=== PATIENT | female | born 2000 | race Caucasian/White ===

== ENCOUNTER 2022-10-04 03:12 | Emergency (ER) | payer BC, SELFPAY ==
--- NOTE | ~2022-10-04 | CT_ITS ---
EXAMINATION: CT abdomen pelvis w con DATE: 10/04/2022 04:55 INDICATION: Left flank pain. TECHNIQUE: Computed tomography (CT) of the abdomen and pelvis was performed with 100 mL Omnipaque 350 intravenous contrast. Automated exposure control and iterative reconstruction technique were employe d. The dose-length product was 270.48 mGy-cm. COMPARISON: None. FINDINGS: The visualized portions of the lung bases are clear without pneumonia or pleural effusion. The heart size is normal. No pericardial effusion. The liver, gallbladder, spleen, pancreas, adrenal glands, and right kidney are normal. There is a left internal ureteral stent in expected position. Th ere is a percutaneous left nephrostomy tube in expected position. There are multiple stones in left k idney including a staghorn calculus measuring 3.9 cm on transaxial images. The nephrostomy tube passe s through a lower pole calyx. There is hydronephrosis of the upper pole with a delayed contrast nephr ogram involving the upper pole. There are cysts in left kidney measuring up to 8 mm. There is cortica l thinning of left kidney lower pole with areas of hypoenhancement in the lower pole. There is mild l eft para-aortic lymphadenopathy. There are no dilated loops of bowel. The appendix is normal. There i s no free intraperitoneal fluid. The bones are unremarkable. IMPRESSION: 1. Staghorn calculus in left kidney with upper pole hydronephrosis. A percutaneous nephrostomy tube d ecompresses the lower pole. Left internal ureteral stent in expected position. 2. Mild left para-aortic lymphadenopathy, likely reactive. Reviewed, dictated and finalized at location A. N ATTENDANT IMPRESSION: 1. Staghorn calculus in left kidney with upper pole hydronephrosis. A percutane ous nephrostomy tube decompresses the lower pole. Left internal ureteral stent in expected position. 2. Mild left para-aortic lymphadenopathy, likely reactive.
[2022-10-04 03:16] VITALS: BP 132/100; PULSE 120; RESP 18; TEMP 36.8; O2SAT 99
--- NOTE | 2022-10-04 03:27 | ECG_ITS ---
Measurements Intervals Tensed Rate: 74 P: 39 OK: 180 QRS: 56 QRSD: 99 T: 29 QT: 388 QTc: 431 Interpretive Statements SINUS RHYTHM NO PREVIOUS ECG AVAILABLE FOR COMPARISON Electronically Signed On 10-04-2022 13:18:55 NET WEB DEVELOPER by Huy Shearer M.D.
[2022-10-04] MEDS: HYDROmorphone HCL INJ (*CRX) 1 MG/ML SYR 0.5 MG IV PUSH (03:43)
[2022-10-04] MEDS: ONDANSETRON INJ 4 MG/2 ML VIAL 8 MG IV PUSH (03:44)
[2022-10-04 03:49] LABS: Basophils Percent Auto 0.3 % (0.2-1.2); Eosinophils Absolute Auto 0.3 K/mm3 (0-0.3); Eosinophils Percent Auto 4.2 % (0-4.4); Hematocrit 36.6 % (37.0-47.0); Hemoglobin 12.3 g/dL (12.0-15.0); Immature Granulocyte Absolute 0.01 K/mm3 (0.00-0.031); Immature Granulocyte Percent A 0.2 % (0-0.5); Lymphocytes Absolute Auto 2.98 K/mm3 (0.9-3.2); Lymphocytes Percent Auto 49.6 % (18.3-44.2); Mean Corpuscular HGB Conc 33.6 g/dl (32-36); Mean Corpuscular Hemoglobin 30.8 pg (26-34); Mean Corpuscular Volume 91.7 fl (80-100); Mean Platelet Volume 9.6 fl (7.4-10.4); Monocytes Absolute Auto 0.4 K/mm3 (0.1-0.6); Monocytes Percent Auto 6.8 % (2.6-8.5); Neutrophils Absolute Auto 2.3 K/mm3 (1.3-6.7); Neutrophils Percent Auto 38.9 % (45.5-73.1); Platelet Count Result 360 k/mm3 (150-375); Red Blood Count 3.99 M/mm3 (4.2-5.4); Red Cell Distribution Width 12.2 % (11.5-14.5)
[2022-10-04 04:01] LABS: Alanine Aminotransferase 9 U/L (6-35); Albumin Level 3.9 g/dL (3.5-5.1); Alkaline Phosphatase 55 U/L (38-126); Anion Gap 9 mmol/L (8-16); Aspartate Amino Transferase 18 U/L (14-36); Bilirubin,Total < 0.1 mg/dL (0.2-1.3); Blood Urea Nitrogen 7 mg/dL (7-17); Carbon Dioxide 27 mmol/L (22-30); Chloride 104 mmol/L (98-107); Estimated CRCL calculation 73 ml/min; Estimated Glomerular Filt Rate > 60; Glucose 97 mg/dL (65-110); Lipase 105 U/L (23-300); Magnesium 1.8 mg/dL (1.6-2.3); Phosphorus 4.5 mg/dL (2.5-4.5); Potassium 3.3 mmol/L (3.4-5.0); Sodium 140 mmol/L (137-145)
[2022-10-04 04:02] LABS: Lactic Acid Reflex 1.4 mmol/L (0.7-2.0)
[2022-10-04 04:03] LABS: Prothrombin Time 12.8 Seconds (11.1-14.7)
--- NOTE | 2022-10-04 04:03 | ED.GENADULT ---
HPI - General Adult General Chief complaint: Urogenital-Female Stated complaint: Pain with Kideny Stone and Tube Site Time Seen by Provider: 10/04/22 03:27 History of Present Illness HPI narrative: this is a 22-year-old female with a history of a 4 cm kidney stone and urostomy on the lap presenting to ED with left-sided flank pain. Patient had the urostomy tube placed on September 01. Since then she has been doing well until approximately 1 week ago. That time she was seen in the hospital and treated for a kidney infection with Levaquin. She is doing well for several days until earlier today around 6:00 p.m. when she did developed dull left-sided flank pain that radiates into her right lower quadrant. It is 5/10 intensity and getting worse. She has never experienced pain like this before. It is slightly positional. She has had an episode of nausea and vomiting but denies fever, abdominal pain or diarrhea. She denies urinary symptoms. The patient's urostomy is still draining urine. Patient has been receiving care for kidney stone at [facility] and in [place] under Dr. Tyler. She is scheduled for surgery next week. Related Data Allergies Allergy/AdvReac Type Severity Reaction Status Date / Time Sulfa (Sulfonamide AdvReac Rash Verified 10/04/22 03:20 Antibiotics) Review of Systems Review of Systems: CONSTITUTIONAL: Denies night sweats. EYES: No eye pain ENT: Denies rhinorrhea CARDIOVASCULAR: Denies palpitations RESPIRATORY: Denies hemoptysis GASTROINTESTINAL: Denies hematemesis GENITOURINARY: Denies hematuria. SKIN: Denies rash MUSCULOSKELETAL: Denies myalgia. NEUROLOGIC: Denies weakness. PSYCHIATRIC: Denies delusions PMFSH Past Medical History Medical History Kidney stone Nephrostomy complication Ureteral stent present Surgical History Surgical History (Updated 10/04/22 @ 04:06 by Tato Castrejon MD) H/O nephrostomy Social History Social History Social History: Patient drinks alcohol occasionally, denies tobacco or drug use. Exam Narrative: APPEARANCE: No apparent distress. Patient's blood during the interview Head: atraumatic. EYES: EOMI, NOSE: Atraumatic NECK: Trachea midline RESPIRATORY: No increased rate of breathing CARDIOVASCULAR: RRR, ABDOMINAL: left-sided CVA tenderness, mild tenderness to palpation in the left lower quadrant. No guarding or rebound. Nephrostomy tube is in place with no surrounding skin changes to indicate infection. MUSCULOSKELETAl: No obvious deformities NEURO: Alert. Moving 4/4 extremities SKIN:: Warm, dry. Normal color PSYCHIATRIC: Normal affect Course Vital Signs Vital signs: Vital Signs Temperature 98.2 F 10/04/22 03:16 Pulse Rate 120 H 10/04/22 03:16 Respiratory Rate 18 10/04/22 03:16 Blood Pressure 132/100 H 10/04/22 03:16 Pulse Oximetry 99 10/04/22 03:16 Oxygen Delivery Room Air 10/04/22 03:16 Temperature 98.2 F 10/04/22 03:16 Pulse Rate 120 H 10/04/22 03:16 Respiratory Rate 18 10/04/22 03:16 Blood Pressure 132/100 H 10/04/22 03:16 Pulse Oximetry 99 10/04/22 03:16 Oxygen Delivery Room Air 10/04/22 03:16 Medical Decision Making [facility] Narrative Medical decision making narrative: This is a 22-year-old female with a urostomy tube running presenting with flank pain. Differentials includes catheter dislodgement or kinking, urinary tract infection, musculoskeletal pain. Lab work, urinalysis from the nephrostomy tube, CT abdomen pelvis with contrast have been ordered. Patient has been given Dilaudid and Zofran for symptom control. patient has been given 2 L of fluid. the patient's nephrostomy tube is still draining so dislodgement or kinking are unlikely. The tube has been in for over 1 month and complications such as hematoma are less likely. EKG interpretation: Rhy
[2022-10-04 04:04] LABS: Partial Thromboplastin Time 32.8 SECONDS (22.3-36.8)
[2022-10-04] MEDS: SODIUM CHLORIDE 0.9% IV 2,000 ML 999 ML IV CONT (04:27)
[2022-10-04 04:30] LABS: Add Urine Microscopic? YES; Bilirubin Urine Negative (Negative); Blood Urine 3+ (Negative); Color Urine Red (Yellow); Glucose Urine UA Negative (Negative); Ketones Urine Trace mg/dL (Negative); Leukocyte Esterase Ur 2+ LEU/UL (Negative); Nitrate Urine Positive (Negative); Protein Urine 2+ mg/dL (Negative); Specific Grav Ur <= 1.005 (1.001-1.035)
[2022-10-04 04:32] LABS: Appearance Urine Cloudy (Clear)
[2022-10-04 04:43] LABS: RBC Urine >75 /hpf (0-2); WBC Clumps Urine Present /HPF; WBC Urine >75 /hpf
[2022-10-04 06:35] VITALS: BP 125/84; PULSE 53; RESP 18; O2SAT 100
[2022-10-04 06:48] VITALS: BP 125/87; PULSE 73; RESP 18; O2SAT 97
== END 2022-10-04 07:01 | disposition home or self-care (01) ==
PROVIDERS: Emergency Provider Emergency Medicine
DX: N13.6 Pyonephrosis (principal); Z93.6 Other artificial openings of urinary tract status; Z96.0 Presence of urogenital implants
CPT/HCPCS: 36415; 74177; 80053; 81001; 81025; 83605; 83690; 83735; 84100; 85025; 85610; 85730; 87086; 87088; 93005; 96361; 96365; 96375; 99284; J0131; J0696; J1170; J2405; J7030; Q9967

== ENCOUNTER 2022-12-19 15:34 | Emergency (ER) | payer BC, SELFPAY ==
[2022-12-19] VITALS (12 sets, daily range): BP systolic 98–136; BP diastolic 48–78; PULSE 71–114; RESP 9–22; TEMP 36.7; O2SAT 96–100
--- NOTE | ~2022-12-19 | CT_ITS ---
EXAMINATION: CT abdomen pelvis wo con DATE: 12/19/2022 20:43 INDICATION: L flank pain, infected UA, hx of large stones TECHNIQUE: Computed tomography (CT) of the abdomen and pelvis was performed without intravenous contr ast. Automated exposure control and iterative reconstruction technique were employed. The dose-length product was 181.19 mGy-cm. COMPARISON: 10/04/2022. FINDINGS: Lower thorax: Unremarkable Liver: Normal. Biliary/Gallbladder: Gallbladder is normal. No bile duct dilation. Pancreas: No mass or duct dilation. Spleen: Normal. Adrenals:No mass. Kidneys: Hemorrhagic or proteinaceous left lower pole cyst. Punctate mid and upper left pole hypodens ities that may represent tiny nonobstructing calculi. No obstructing calcification, suspicious mass, or hydronephrosis. GI tract: No small or large bowel dilation. Normal appendix. Mesentery/Peritoneum: No ascites, mass, or free air. Retroperitoneum: No mass. Prominent left para-aortic nodes, not pathologic by size criteria and small er than in the prior study. Pelvis: Bladder wall thickening and inflammatory change. Normal uterus and bilateral ovaries. Soft Tissues: Soft tissues and body wall unremarkable. Bones: No acute osseous finding. IMPRESSION: Interval removal of the left staghorn calculus. No CT evidence of obstructive uropathy. Bladder findi ngs may represent cystitis in the appropriate clinical context. Reviewed, dictated and finalized at location K. START TEACHER IMPRESSION: Interval removal of the left staghorn calculus. No CT evidence of obstructive u ropathy. Bladder findings may represent cystitis in the appropriate clinical co ntext.
[2022-12-19 16:59] LABS: Basophils Percent Auto 0.3 % (0.2-1.2); Eosinophils Absolute Auto 0.1 K/mm3 (0-0.3); Eosinophils Percent Auto 0.8 % (0-4.4); Hematocrit 45.3 % (37.0-47.0); Hemoglobin 14.9 g/dL (12.0-15.0); Immature Granulocyte Absolute 0.02 K/mm3 (0.00-0.031); Immature Granulocyte Percent A 0.2 % (0-0.5); Lymphocytes Absolute Auto 1.34 K/mm3 (0.9-3.2); Mean Corpuscular HGB Conc 32.9 g/dl (32-36); Mean Corpuscular Volume 97.4 fl (80-100); Mean Platelet Volume 9.7 fl (7.4-10.4); Monocytes Absolute Auto 0.9 K/mm3 (0.1-0.6); Monocytes Percent Auto 8.9 % (2.6-8.5); Neutrophils Absolute Auto 7.9 K/mm3 (1.3-6.7); Neutrophils Percent Auto 76.8 % (45.5-73.1); Platelet Count Result 323 k/mm3 (150-375); Red Blood Count 4.65 M/mm3 (4.2-5.4); Red Cell Distribution Width 13.6 % (11.5-14.5); White Blood Count 10.3 K/mm3 (4.5-10.0)
[2022-12-19 17:09] LABS: Alanine Aminotransferase 13 U/L (6-35); Albumin Level 4.3 g/dL (3.5-5.1); Alkaline Phosphatase 74 U/L (38-126); Anion Gap 4 mmol/L (8-16); Aspartate Amino Transferase 19 U/L (14-36); Bilirubin,Total 0.9 mg/dL (0.2-1.3); Blood Urea Nitrogen 17 mg/dL (7-17); Carbon Dioxide 29 mmol/L (22-30); Chloride 103 mmol/L (98-107); Estimated CRCL calculation 73 ml/min; Estimated Glomerular Filt Rate > 60; Glucose 85 mg/dL (65-110); Potassium 4.2 mmol/L (3.4-5.0); Sodium 136 mmol/L (137-145)
[2022-12-19 17:19] LABS: Appearance Urine Turbid (Clear); Bilirubin Urine 1+ (Negative); Blood Urine 1+ (Negative); Color Urine Dark Yellow (Yellow); Glucose Urine UA Negative (Negative); Ketones Urine 3+ mg/dL (Negative); Leukocyte Esterase Ur 2+ LEU/UL (Negative); Need Manual Microscopic Reviewed; Nitrate Urine Positive (Negative); Non Pathogenic Casts 0-2; Protein Urine 2+ mg/dL (Negative); Specific Grav Ur 1.022 (1.001-1.035); Squamous Epithelial Cell Urine Few /hpf (Few); WBC Urine >100 /hpf; pH Urine 5.5 (5.0-9.0)
[2022-12-19 17:22] LABS: Bacteria Urine 4+ /hpf
[2022-12-19 17:26] LABS: Add Urine Microscopic? YES
--- NOTE | 2022-12-19 20:01 | ED.ABDPAIN ---
HPI - Abdominal Pain General Chief Complaint: Abdominal Pain Stated Complaint: kidney stones/hematuria/vomiting Time Seen by Provider: 12/19/22 19:51 History of Present Illness HPI narrative: Patient is a 22-year-old female with a history of kidney stones presenting with flank pain. Patient states that she was diagnosed with a 4 cm left kidney stone several months ago that required lithotripsy and a nephrostomy tube. This was done by a urologist in [facility] which is her hometown. She is in this area for school. States that she is actually scheduled to have another stone removed from her left kidney in approximately 10 days. Unfortunately, over the last day and a half she has had worsening intermittent left flank pain that radiates into her left groin. States that this has been associated with dysuria as well as vomiting. States she has been unable to keep anything down today. Reports chills yesterday. No headache, chest pain, shortness of breath, cough, diarrhea, constipation. Related Data Allergies Allergy/AdvReac Type Severity Reaction Status Date / Time Sulfa (Sulfonamide AdvReac Rash Verified 12/19/22 16:28 Antibiotics) Review of Systems Review of Systems: All systems reviewed & are unremarkable except as noted in HPI and below PMFSH Past Medical History Medical History Kidney stone Nephrostomy complication Ureteral stent present Surgical History Surgical History H/O nephrostomy Social History Social History Social History: Patient drinks alcohol occasionally, denies tobacco or drug use. Exam Narrative: GENERAL: Well-appearing, well-nourished, and in no acute distress. HEAD: Normocephalic, atraumatic. EYES: PERRLA and EOMI. ENT: Nares clear, no rhinorrhea or epistaxis. Mucous membranes moist. NECK: Supple. CHEST: Clear to auscultation. No respiratory distress. HEART: Regular rate and rhythm. No murmur heard. Normal peripheral pulses. ABDOMEN: Soft, nontender, nondistended, + left CVA/flank tenderness EXTREMITIES: Normal range of motion. No edema. SKIN: Warm, dry, no rash. NEURO: No focal deficits. Alert and oriented x3. PSYCH: Normal mood and affect. Course Vital Signs Vital signs: Vital Signs Temperature 98.1 F 12/19/22 16:24 Pulse Rate 99 12/19/22 16:24 Respiratory Rate 16 12/19/22 16:24 Blood Pressure 136/78 12/19/22 16:24 Pulse Oximetry 100 12/19/22 16:24 Oxygen Delivery Room Air 12/19/22 16:24 Temperature 98.1 F 12/19/22 16:24 Pulse Rate 74 12/19/22 22:40 Respiratory Rate 18 12/19/22 22:40 Blood Pressure 98/48 L 12/19/22 22:40 Pulse Oximetry 98 12/19/22 22:40 Oxygen Delivery Room Air 12/19/22 16:24 MDM - Abdominal Pain MDM Narrative Medical decision making narrative: Patient is a 22-year-old female presenting with left flank pain and vomiting. Vitals within normal limits. Exam remarkable for the above. Blood work with mild leukocytosis. Renal function is normal. UA is infected. IV Rocephin has been ordered. Fluids are ongoing. CT abdomen pelvis with evidence of cystitis but there are no ureteral stones or evidence of pyelonephritis. Patient is tolerating p.o. intake after IV Zofran. States that she feels improved. She feels comfortable going home and states that she has an appointment with her urologist in 9 days. We will provide a number for our urologist as well since she is in the area for school. We will send her home with a prescription for Keflex and Zofran. Advised Tylenol and ibuprofen for pain control. Appropriate return precautions given. Patient voiced understanding and is agreeable with plan. Discharged in stable condition. Differential Diagnosis Differential diagnosis: Likely abdominal pain, calculus of kidney, diverticulitis, zion
[2022-12-19] MEDS: SODIUM CHLORIDE 0.9% IV 1,000 ML 999 ML IV CONT ×2 (20:21→21:11)
[2022-12-19] MEDS: HYDROmorphone HCL INJ (*CRX) 1 MG/ML SYR 0.5 MG IV PUSH (20:21)
[2022-12-19] MEDS: ONDANSETRON INJ 4 MG/2 ML VIAL IV PUSH (20:22)
== END 2022-12-19 22:50 | disposition home or self-care (01) ==
PROVIDERS: Emergency Medicine; Emergency Provider Emergency Medicine
DX: N39.0 Urinary tract infection, site not specified (principal); Z96.0 Presence of urogenital implants
CPT/HCPCS: 36415; 74176; 80053; 81001; 81025; 85025; 87040; 87077; 87086; 87186; 96361; 96365; 96375; 99284; J0131; J0696; J1170; J2405; J7030

== ENCOUNTER 2023-06-06 02:22 | Emergency (ER) | payer BC, SELFPAY ==
--- NOTE | ~2023-06-06 | CT_ITS ---
EXAMINATION: CT abdomen pelvis wo con DATE: 06/06/2023 02:58 INDICATION: Kidney stone. TECHNIQUE: Computed tomography (CT) of the abdomen and pelvis was performed without intravenous contr ast. Automated exposure control and iterative reconstruction technique were employed. The dose-length product was 321.25 mGy-cm. COMPARISON: CT abdomen and pelvis 12/19/2022 FINDINGS: The visualized portions of the lung bases are clear without pneumonia or pleural effusion. The heart size is normal. No pericardial effusion. The liver, gallbladder, spleen, pancreas, adrenal glands, and kidneys are normal. There is no urolithiasis. There are no dilated loops of bowel. The ap pendix is normal. There are no pathologically enlarged lymph nodes. There is no free intraperitoneal fluid. The bones are unremarkable. IMPRESSION: 1. No urolithiasis. Reviewed, dictated and finalized at location A. IMPRESSION: 1. No urolithiasis.
[2023-06-06 02:26] VITALS: BP 122/69; PULSE 124; RESP 16; TEMP 36.3; O2SAT 100
[2023-06-06 02:59] LABS: Basophils Percent Auto 0.7 % (0.2-1.2); Eosinophils Absolute Auto 0.2 K/mm3 (0-0.3); Hematocrit 41.4 % (37.0-47.0); Immature Granulocyte Absolute 0.02 K/mm3 (0.00-0.031); Immature Granulocyte Percent A 0.3 % (0-0.5); Lymphocytes Absolute Auto 2.51 K/mm3 (0.9-3.2); Lymphocytes Percent Auto 41.3 % (18.3-44.2); Mean Corpuscular HGB Conc 33.8 g/dl (32-36); Mean Corpuscular Hemoglobin 31.7 pg (26-34); Mean Corpuscular Volume 93.7 fl (80-100); Mean Platelet Volume 10.1 fl (7.4-10.4); Monocytes Absolute Auto 0.6 K/mm3 (0.1-0.6); Neutrophils Absolute Auto 2.8 K/mm3 (1.3-6.7); Neutrophils Percent Auto 45.7 % (45.5-73.1); Platelet Count Result 287 k/mm3 (150-375); Red Blood Count 4.42 M/mm3 (4.2-5.4); White Blood Count 6.1 K/mm3 (4.5-10.0)
[2023-06-06 03:11] LABS: Appearance Urine Clear (Clear); Bilirubin Urine Negative (Negative); Blood Urine Negative (Negative); Color Urine Yellow (Yellow); Glucose Urine UA Negative (Negative); Ketones Urine Negative (Negative); Leukocyte Esterase Ur Negative LEU/UL (Negative); Nitrate Urine Negative (Negative); Protein Urine Negative (Negative); Specific Grav Ur 1.008 (1.001-1.035); Urobilinogen Urine 0.2 mg/dL (<2.0); pH Urine 5.5 (5.0-9.0)
[2023-06-06 03:23] LABS: Alanine Aminotransferase 11 U/L (6-35); Albumin Level 4.2 g/dL (3.5-5.1); Alkaline Phosphatase 38 U/L (38-126); Anion Gap 7 mmol/L (8-16); Aspartate Amino Transferase 20 U/L (14-36); Bilirubin,Total 0.2 mg/dL (0.2-1.3); Blood Urea Nitrogen 9 mg/dL (7-17); Calcium 8.6 mg/dL (8.4-10.2); Carbon Dioxide 25 mmol/L (22-30); Chloride 104 mmol/L (98-107); Estimated CRCL calculation 82 ml/min; Estimated Glomerular Filt Rate > 60; Glucose 99 mg/dL (65-110); Potassium 3.9 mmol/L (3.4-5.0); Sodium 136 mmol/L (137-145)
[2023-06-06 03:26] LABS: Add Urine Microscopic? NO
[2023-06-06] MEDS: ACETAMINOPHEN 500 MG TABLET 1000 MG PO (03:45)
[2023-06-06] MEDS: KETOROLAC 15 MG/ML VIAL (*BKC) IV PUSH (03:45)
[2023-06-06] MEDS: HYDROmorphone HCL INJ (*CRX) 1 MG/ML SYR 0.5 MG IV PUSH (03:45)
[2023-06-06] MEDS: ONDANSETRON INJ 4 MG/2 ML VIAL IV PUSH (03:45)
--- NOTE | 2023-06-06 05:22 | ED.GENADULT ---
HPI - General Adult General Chief complaint: Urogenital-Female Stated complaint: right flank/abd pain, vomiting Time Seen by Provider: 06/06/23 02:58 History of Present Illness HPI narrative: This is a 23-year-old female with history of kidney stones presenting ED with chief complaint of right flank and suprapubic pain. The patient has been having intermittent right-sided flank pain that is sharp in wrapping to the suprapubic area for the last several days. yesterday she passed a large kidney stone and thought her pain was improved. She has been having some intermittent pain since then. She has also been having difficulty urinating with dysuria. Some nausea and vomiting. Patient denies fever chills. Related Data Allergies Allergy/AdvReac Type Severity Reaction Status Date / Time Sulfa (Sulfonamide AdvReac Rash Verified 06/06/23 02:23 Antibiotics) [facility] Past Medical History Medical History Kidney stone Nephrostomy complication Ureteral stent present Surgical History Surgical History H/O nephrostomy Social History Social History Social History: Patient drinks alcohol occasionally, denies tobacco or drug use. Exam Narrative: APPEARANCE: No apparent distress. Pleasant polite Head: atraumatic. EYES: EOMI, NOSE: Atraumatic NECK: Trachea midline RESPIRATORY: No increased rate of breathing CARDIOVASCULAR: RRR, ABDOMINAL: suprapubic tenderness /fullness, no CVA tenderness, no guarding or rebound MUSCULOSKELETAl: No obvious deformities NEURO: Alert. Moving 4/4 extremities SKIN:: Warm, dry. Normal color PSYCHIATRIC: Normal affect Course Vital Signs Vital signs: Vital Signs Temperature 97.3 F L 06/06/23 02:26 Pulse Rate 124 H 06/06/23 02:26 Respiratory Rate 06/06/23 02:26 Blood Pressure 122/69 06/06/23 02:26 Pulse Oximetry 100 06/06/23 02:26 Oxygen Delivery Room Air 06/06/23 02:26 Temperature 97.3 F L 06/06/23 02:26 Pulse Rate 124 H 06/06/23 02:26 Respiratory Rate 16 06/06/23 02:26 Blood Pressure 122/69 06/06/23 02:26 Pulse Oximetry 100 06/06/23 02:26 Oxygen Delivery Room Air 06/06/23 02:26 Medical Decision Making MDM Narrative Medical decision making narrative: -Presentation: 23-year-old female with history of kidney stones presenting 2 days after passing a large kidney stone. She still having intermittent flank pain but has been unable to urinate fully. CT - no stones but a distended bladder.. patient was still unable to void and a leg bag was placed. patient's symptoms improved. Patient will be given urology follow-up. -DDX includes but is not limited to: urinary retention, kidney stone, urethral stricture, urethral spasm -Co-morbidities complicating care: History of kidney stones -Social determinants of health: patient just graduated college, lives with roommates -Hx from independent Sources: remains at bedside -Independent interpretation of studies: Laboratory studies normal. Urine not indicative of infection. CT on pelvis showed distended bladder but no kidney stones. -Interventions: 0.5 mg Dilaudid, 15 mg Toradol, 4 mg Zofran, 1000 mg Tylenol, 1 L normal saline -Shared decision making / Disposition: patient discharged with urology follow-up. -RX Motrin Tylenol Zofran Vital Signs Vital Signs: Vital Signs Temperature 97.3 F L 06/06/23 02:26 Pulse Rate 124 H 06/06/23 02:26 Respiratory Rate 06/06/23 02:26 Blood Pressure 122/69 06/06/23 02:26 Pulse Oximetry 100 06/06/23 02:26 Oxygen Delivery Room Air 06/06/23 02:26 Temperature 97.3 F L 06/06/23 02:26 Pulse Rate 124 H 06/06/23 02:26 Respiratory Rate 16 06/06/23 02:26 Blood Pressure 122/69 06/06/23 02:26 Pulse Oximetry 100 06/06/23 02:26 Oxygen Delivery Room Air 06/06/23
[2023-06-06 06:10] VITALS: BP 110/73; PULSE 88; RESP 15; O2SAT 99
== END 2023-06-06 06:12 | disposition home or self-care (01) ==
PROVIDERS: Emergency Provider Emergency Medicine
DX: R33.9 Retention of urine, unspecified (principal); Z87.442 Personal history of urinary calculi
CPT/HCPCS: 36415; 51702; 74176; 80053; 81003; 81025; 85025; 96374; 96375; 99284; A9270; J1170; J1885; J2405

== ENCOUNTER 2023-06-14 22:03 | Emergency (ER) | payer BC, SELFPAY ==
[2023-06-14 22:46] VITALS: BP 127/75; PULSE 98; RESP 16; TEMP 36.5; O2SAT 100
[2023-06-15 01:20] VITALS: BP 120/80; PULSE 100; RESP 14; TEMP 37; O2SAT 99
[2023-06-15 01:43] LABS: Appearance Urine Cloudy (Clear); Bacteria Urine 4+ /hpf; Bilirubin Urine Negative (Negative); Blood Urine Negative (Negative); Color Urine Dark Yellow (Yellow); Glucose Urine UA Negative (Negative); Ketones Urine 1+ mg/dL (Negative); Leukocyte Esterase Ur 3+ LEU/UL (Negative); Nitrate Urine Positive (Negative); Non Pathogenic Casts 0-2; Protein Urine Negative (Negative); RBC Urine 0-2 /hpf (0-2); Squamous Epithelial Cell Urine Few /hpf (Few); WBC Urine 51-100 /hpf
[2023-06-15 01:50] LABS: Add Urine Microscopic? YES
--- NOTE | 2023-06-15 02:04 | ED.GENADULT ---
HPI - General Adult General Chief complaint: Urogenital-Female Stated complaint: urinary retention Time Seen by Provider: 06/15/23 01:04 History of Present Illness HPI narrative: 23-year-old female with history of ureteral calculi presented the emergency department for evaluation of difficulty urinating. Patient reports she had previous difficulty urinating and had a Bergeron catheter placed. Before patient was able to have outpatient follow-up she removed the Bergeron catheter herself. Patient is scheduled to have follow-up with Dr. Reaves in July. Patient states over the course of the day she has had increased difficulty urinating and has had some nausea and vomiting. Related Data Allergies Allergy/AdvReac Type Severity Reaction Status Date / Time Sulfa (Sulfonamide AdvReac Rash Verified 06/14/23 22:49 Antibiotics) Review of Systems Review of Systems: All systems reviewed & are unremarkable except as noted in HPI and below PMFSH Past Medical History Medical History Kidney stone Nephrostomy complication Ureteral stent present Surgical History Surgical History H/O nephrostomy Social History Social History Social History: Patient drinks alcohol occasionally, denies tobacco or drug use. Exam Narrative: APPEARANCE: Well appearing, no pain, no distress, well-nourished. HEAD: normocephalic, atraumatic. EYES: PERRLA/EOMI, conjunctivae clear. NOSE: Normal no drainage NECK: Supple. No adenopathy, no masses. RESPIRATORY: Airway patent, respirations nonlabored. Clear to auscultation bilaterally, no rales, rhonchi, wheezing. CARDIOVASCULAR: Regular rate and rhythm without murmurs rubs or gallops. ABDOMINAL: Soft, nontender, nondistended, normal bowel sounds MUSCULOSKELETAL: Moves all extremities. Strength/ROM intact, No edema, No calf tenderness. NEURO: Alert. Cranial nerves II through XII intact. Grossly intact SKIN: Warm, dry. Normal Color Course Course Emergency Course: 23-year-old female present emergency department for evaluation of increased urinary retention. Patient had greater than 400 mL of retained urine and had adequate drainage of her bladder after a Bergeron catheter was placed. Patient does feel significantly improved. Patient's urine was orange-colored due to her taking [id number] Pyridium. Patient was treated with IV Zofran IV Rocephin and IV fluids. Patient did feel improved with treatment. Patient was afebrile with no leukocytosis and a stable hemoglobin. Patient has normal kidney function. Patient was discharged home with additional antibiotics and medications for nausea control. Patient was also encouraged of close follow-up with urology. Vital Signs Vital signs: Vital Signs Temperature 97.7 F 06/14/23 22:46 Pulse Rate 98 06/14/23 22:46 Respiratory Rate 16 06/14/23 22:46 Blood Pressure 127/75 06/14/23 22:46 Pulse Oximetry 100 06/14/23 22:46 Oxygen Delivery Room Air 06/14/23 22:46 Temperature 98.3 F 06/15/23 03:33 Pulse Rate 69 06/15/23 03:33 Respiratory Rate 17 06/15/23 03:33 Blood Pressure 108/75 06/15/23 03:33 Pulse Oximetry 97 06/15/23 03:33 Oxygen Delivery Room Air 06/14/23 22:46 Medical Decision Making Differential Diagnosis Differential Diagnosis: UTI, urinary retention, dehydration, acute kidney injury Vital Signs Vital Signs: Vital Signs Temperature 97.7 F 06/14/23 22:46 Pulse Rate 98 06/14/23 22:46 Respiratory Rate 16 06/14/23 22:46 Blood Pressure 127/75 06/14/23 22:46 Pulse Oximetry 100 06/14/23 22:46 Oxygen Delivery Room Air 06/14/23 22:46 Temperature 98.3 F 06/15/23 03:33 Pulse Rate 69 06/15/23 03:33 Respiratory Rate 17 06/15/23 03:33 Blood Pressure 108/75 06/15/23 03:33 Pulse Oximetry 97 06/15/23 03:33
[2023-06-15] MEDS: ONDANSETRON INJ 4 MG/2 ML VIAL IV PUSH (02:19)
[2023-06-15] MEDS: SODIUM CHLORIDE 0.9% IV 1,000 ML 999 ML IV CONT (02:20)
[2023-06-15 02:42] LABS: Basophils Percent Auto 0.4 % (0.2-1.2); Eosinophils Absolute Auto 0.2 K/mm3 (0-0.3); Hematocrit 41.5 % (37.0-47.0); Immature Granulocyte Absolute 0.02 K/mm3 (0.00-0.031); Immature Granulocyte Percent A 0.3 % (0-0.5); Lymphocytes Absolute Auto 2.24 K/mm3 (0.9-3.2); Mean Corpuscular HGB Conc 33.7 g/dl (32-36); Mean Corpuscular Hemoglobin 31.8 pg (26-34); Mean Corpuscular Volume 94.3 fl (80-100); Mean Platelet Volume 10.2 fl (7.4-10.4); Monocytes Absolute Auto 0.6 K/mm3 (0.1-0.6); Monocytes Percent Auto 7.1 % (2.6-8.5); Neutrophils Percent Auto 62.2 % (45.5-73.1); Platelet Count Result 323 k/mm3 (150-375)
[2023-06-15 02:50] VITALS: BP 130/87; PULSE 80; RESP 19; O2SAT 97
[2023-06-15 02:54] LABS: Alanine Aminotransferase 12 U/L (6-35); Albumin Level 4.2 g/dL (3.5-5.1); Alkaline Phosphatase 47 U/L (38-126); Anion Gap 5 mmol/L (8-16); Aspartate Amino Transferase 23 U/L (14-36); Bilirubin,Total 0.4 mg/dL (0.2-1.3); Blood Urea Nitrogen 12 mg/dL (7-17); Calcium 8.8 mg/dL (8.4-10.2); Carbon Dioxide 25 mmol/L (22-30); Chloride 103 mmol/L (98-107); Estimated CRCL calculation 82 ml/min; Estimated Glomerular Filt Rate > 60; Glucose 83 mg/dL (65-110); Potassium 3.8 mmol/L (3.4-5.0); Sodium 133 mmol/L (137-145)
[2023-06-15] MEDS: METOCLOPRAMIDE HCL INJ 10 MG/2 ML VIAL IV PUSH (03:32)
[2023-06-15 03:33] VITALS: BP 108/75; PULSE 69; RESP 17; TEMP 36.8; O2SAT 97
== END 2023-06-15 03:50 | disposition home or self-care (01) ==
PROVIDERS: Emergency Provider Emergency Medicine
DX: N39.0 Urinary tract infection, site not specified (principal); R33.9 Retention of urine, unspecified; R11.2 Nausea with vomiting, unspecified; Z87.442 Personal history of urinary calculi
CPT/HCPCS: 36415; 51702; 80053; 81001; 81025; 85025; 87077; 87086; 87186; 96361; 96365; 96375; 99284; J0696; J2405; J2765; J7030

== ENCOUNTER 2023-08-02 12:27 | Emergency (ER) | payer BC, SELFPAY ==
--- NOTE | ~2023-08-02 | US_ITS ---
EXAMINATION: US renal BI DATE: 08/02/2023 14:55 INDICATION: Flank pain, kidney stones TECHNIQUE: Multiple grayscale and Doppler ultrasound images of the kidneys were obtained. COMPARISON: CT, 06/06/2023 FINDINGS: The right kidney measures 10.1 x 3.8 x 5.1 cm. The left kidney measures 11.1 x 5.4 x 5.6 cm . The kidneys demonstrate normal parenchymal echogenicity. There is no hydronephrosis. The bladder is normal. IMPRESSION: 1. Normal kidneys without hydronephrosis. Reviewed, dictated and finalized at location L.
[2023-08-02 12:31] VITALS: BP 127/78; PULSE 118; RESP 18; TEMP 36.4; O2SAT 98
[2023-08-02] MEDS: ONDANSETRON INJ 4 MG/2 ML VIAL IV PUSH (13:33)
[2023-08-02] MEDS: SODIUM CHLORIDE 0.9% IV 1,000 ML 999 ML IV CONT (13:33)
[2023-08-02 13:41] LABS: Basophils Percent Auto 0.5 % (0.2-1.2); Eosinophils Absolute Auto 0.1 K/mm3 (0-0.3); Eosinophils Percent Auto 0.9 % (0-4.4); Hematocrit 41.1 % (37.0-47.0); Immature Granulocyte Absolute 0.02 K/mm3 (0.00-0.031); Immature Granulocyte Percent A 0.4 % (0-0.5); Lymphocytes Absolute Auto 1.95 K/mm3 (0.9-3.2); Lymphocytes Percent Auto 34.4 % (18.3-44.2); Mean Corpuscular HGB Conc 34.1 g/dl (32-36); Mean Corpuscular Hemoglobin 31.9 pg (26-34); Mean Corpuscular Volume 93.6 fl (80-100); Mean Platelet Volume 9.6 fl (7.4-10.4); Monocytes Absolute Auto 0.4 K/mm3 (0.1-0.6); Monocytes Percent Auto 6.7 % (2.6-8.5); Neutrophils Absolute Auto 3.2 K/mm3 (1.3-6.7); Neutrophils Percent Auto 57.1 % (45.5-73.1); Platelet Count Result 340 k/mm3 (150-375); Red Blood Count 4.39 M/mm3 (4.2-5.4); White Blood Count 5.7 K/mm3 (4.5-10.0)
[2023-08-02 13:51] LABS: Alanine Aminotransferase 15 U/L (6-35); Albumin Level 4.6 g/dL (3.5-5.1); Alkaline Phosphatase 57 U/L (38-126); Anion Gap 8 mmol/L (8-16); Aspartate Amino Transferase 23 U/L (14-36); Bilirubin,Total 0.5 mg/dL (0.2-1.3); Blood Urea Nitrogen 11 mg/dL (7-17); Calcium 9.3 mg/dL (8.4-10.2); Carbon Dioxide 25 mmol/L (22-30); Chloride 103 mmol/L (98-107); Estimated CRCL calculation 94 ml/min; Estimated Glomerular Filt Rate > 60; Glucose 81 mg/dL (65-110); Lipase 57 U/L (23-300); Potassium 3.9 mmol/L (3.4-5.0); Sodium 136 mmol/L (137-145)
[2023-08-02 13:54] LABS: Appearance Urine Turbid (Clear); Bacteria Urine 4+ /hpf; Bilirubin Urine Negative (Negative); Blood Urine Negative (Negative); Color Urine Yellow (Yellow); Glucose Urine UA Negative (Negative); Ketones Urine 3+ mg/dL (Negative); Leukocyte Esterase Ur 2+ LEU/UL (Negative); Need Manual Microscopic Reviewed; Nitrate Urine Negative (Negative); Protein Urine Trace mg/dL (Negative); Specific Grav Ur 1.023 (1.001-1.035); Squamous Epithelial Cell Urine Many /hpf (Few); Urobilinogen Urine 0.2 mg/dL (<2.0); WBC Urine 21-50 /hpf
[2023-08-02 13:58] LABS: Add Urine Microscopic? YES; SPREG INTERNAL CONTROL Positive; Serum Qual hCG Negative
--- NOTE | 2023-08-02 14:14 | ED.NAVMDI ---
HPI - Nausea/Vomiting/Diarrhea General Chief complaint: Nausea/Vomiting/Diarrhea Stated complaint: left flank pain Time Seen by Provider: 08/02/23 13:17 History of Present Illness HPI Narrative: Patient is a 23-year-old female who presents the emergency department at this afternoon complaining of nausea, vomiting, and dysuria. Patient states that she has a history of kidney stones and believes that that she is either passing 1 or may have already passed it yesterday. Patient states that she feels the same way she felt last time she had a kidney stone. She denies any chance of . She admits to having nausea but denies any vomiting episodes. She denies any fevers or chills. She denies any dysuria but states that it has been a little bit difficult for her to urinate and yesterday she did notice a small amount of hematuria which has now resolved. She is denying any flank pain. patient denies any chest pain, shortness of breath, abdominal pain, constipation, diarrhea, melena, hematochezia, fevers or chills. She also denies any headaches, dizziness, lightheadedness, blurry visions, focal weakness, numbness and or tingling. There are no other modifying, alleviating, or precipitating factors at this time. Related Data Allergies Allergy/AdvReac Type Severity Reaction Status Date / Time Sulfa (Sulfonamide AdvReac Rash Verified 08/02/23 12:38 Antibiotics) Review of Systems Review of Systems: All systems are reviewed and are negative unless stated otherwise in the HPI. [facility] Past Medical History Medical History Kidney stone Nephrostomy complication Ureteral stent present Surgical History Surgical History H/O nephrostomy Social History Social History Social History: Patient drinks alcohol occasionally, denies tobacco or drug use. Exam Narrative: General: Alert, awake, afebrile, in no acute distress. HEENT: PERRL, no rhinorrhea, no post nasal drip, oropharynx clear. Neck: Trachea midline, no JVD, no lymphadenopathy. Cardiovascular: Regular rate and rhythm, no murmurs, rubs or gallops, no peripheral edema. Respiratory: Clear to auscultation bilaterally, no tachypnea, no wheezing, no rhonchi, no rubs, no respiratory distress. Abdomen: Soft, nontender, nondistended, no rebound, no guarding, no peritoneal signs, no CVA tenderness. Musculoskeletal: No joint swelling or deformity, normal muscle tone. Skin: No rashes or petechia, no signs of infection. Psychiatric: Alert and oriented, normal behavior and judgment for situation. Neurological: Alert and oriented to person, place, and time. Follows all commands. No focal deficits, speech is clear and fluent. Course Vital Signs Vital signs: Vital Signs Temperature 97.5 F L 08/02/23 12:31 Pulse Rate 118 H 08/02/23 12:31 Respiratory Rate 18 08/02/23 12:31 Blood Pressure 127/78 08/02/23 12:31 Pulse Oximetry 98 08/02/23 12:31 Temperature 97.5 F L 08/02/23 12:31 Pulse Rate 118 H 08/02/23 12:31 Respiratory Rate 18 08/02/23 12:31 Blood Pressure 127/78 08/02/23 12:31 Pulse Oximetry 98 08/02/23 12:31 MDM - Nausea/Vomiting/Diarrhea MDM Narrative Medical decision making narrative: The patient was evaluated by myself in the emergency department. History is obtained from patient who is an independent historian and physical exam was performed. External medical records were reviewed at this time. IV was established and pertinent tests were ordered. Patient was administered 15 mg of IV Toradol after negative test and 4 mg of IV Zofran for pain and nausea. She was started on 1 L IV fluid bolus with normal saline. Laboratory results obtained revealing a urinary tract infection, otherwise unremarkable. Imaging studies obtained included bilateral renal ultr
[2023-08-02] MEDS: KETOROLAC 15 MG/ML VIAL (*BKC) IV PUSH (14:23)
[2023-08-02 15:38] VITALS: BP 115/74; PULSE 97; RESP 16; O2SAT 99
== END 2023-08-02 15:52 | disposition home or self-care (01) ==
PROVIDERS: Emergency Provider Emergency Medicine
DX: N39.0 Urinary tract infection, site not specified (principal); N20.0 Calculus of kidney; Z87.442 Personal history of urinary calculi
CPT/HCPCS: 36415; 76775; 80053; 81001; 82248; 83690; 84703; 85025; 87086; 87088; 96361; 96374; 96375; 99284; J1885; J2405; J7030

== ENCOUNTER 2023-08-08 16:07 | Emergency (ER) | payer BC, SELFPAY ==
[2023-08-08] VITALS (17 sets, daily range): BP systolic 96–137; BP diastolic 52–90; PULSE 88–99; RESP 14–18; TEMP 36.9; O2SAT 97–100
--- NOTE | ~2023-08-08 | XR_ITS ---
EXAMINATION: XR abdomen/kub 1V DATE: 08/08/2023 19:07 INDICATION: Bilateral flank pain. TECHNIQUE: A supine view of the abdomen on 2 radiographs was obtained. COMPARISON: CT abdomen and pelvis 06/06/2023 FINDINGS: There are no dilated loops of bowel. There is a small volume of stool in the colon. There i s no urolithiasis. IMPRESSION: 1. Normal bowel gas pattern. Reviewed, dictated and finalized at location E.
--- NOTE | ~2023-08-08 | US_ITS ---
EXAMINATION: US renal BI DATE: 08/08/2023 19:48 INDICATION: Bilateral flank pain. TECHNIQUE: Multiple ultrasound grayscale images of the kidneys were obtained. COMPARISON: CT abdomen and pelvis 06/06/2023, ultrasound 08/02/2023 FINDINGS: The right kidney measures 10.7 x 4.1 x 3.7 cm. The left kidney measures 10.4 x 5.2 x 5.0 cm. The kidn eys demonstrate normal parenchymal echogenicity. There is no hydronephrosis. The bladder is normal. IMPRESSION: 1. Normal kidneys. No hydronephrosis. Reviewed, dictated and finalized at location E.
[2023-08-08 16:38] LABS: Basophils Percent Auto 0.3 % (0.2-1.2); Hemoglobin 14.5 g/dL (12.0-15.0); Lymphocytes Absolute Auto 1.59 K/mm3 (0.9-3.2); Lymphocytes Percent Auto 43.2 % (18.3-44.2); Mean Corpuscular Hemoglobin 31.1 pg (26-34); Mean Corpuscular Volume 94.4 fl (80-100); Monocytes Absolute Auto 0.4 K/mm3 (0.1-0.6); Neutrophils Absolute Auto 1.6 K/mm3 (1.3-6.7); Neutrophils Percent Auto 44.5 % (45.5-73.1); Platelet Count Result 260 k/mm3 (150-375); Red Blood Count 4.66 M/mm3 (4.2-5.4); Red Cell Distribution Width 12.6 % (11.5-14.5); White Blood Count 3.7 K/mm3 (4.5-10.0)
[2023-08-08 16:42] LABS: Appearance Urine Clear (Clear); Bacteria Urine Rare /hpf; Bilirubin Urine Negative (Negative); Blood Urine Negative (Negative); Color Urine Yellow (Yellow); Glucose Urine UA Negative (Negative); Ketones Urine 1+ mg/dL (Negative); Leukocyte Esterase Ur Trace LEU/UL (Negative); Nitrate Urine Negative (Negative); Non Pathogenic Casts 0-2; Protein Urine Negative (Negative); Specific Grav Ur 1.007 (1.001-1.035); Squamous Epithelial Cell Urine Few /hpf (Few); Urobilinogen Urine 0.2 mg/dL (<2.0); WBC Urine 0-5 /hpf
[2023-08-08 16:48] LABS: Alanine Aminotransferase 15 U/L (6-35); Albumin Level 4.6 g/dL (3.5-5.1); Alkaline Phosphatase 55 U/L (38-126); Anion Gap 9 mmol/L (8-16); Aspartate Amino Transferase 23 U/L (14-36); Bilirubin,Total 0.4 mg/dL (0.2-1.3); Blood Urea Nitrogen 7 mg/dL (7-17); Calcium 8.9 mg/dL (8.4-10.2); Carbon Dioxide 24 mmol/L (22-30); Chloride 103 mmol/L (98-107); Estimated CRCL calculation 94 ml/min; Estimated Glomerular Filt Rate > 60; Glucose 91 mg/dL (65-110); Lipase 230 U/L (23-300); Potassium 3.8 mmol/L (3.4-5.0); Sodium 136 mmol/L (137-145)
[2023-08-08 16:57] LABS: Add Urine Microscopic? YES
--- NOTE | 2023-08-08 18:49 | ED.GENADULT ---
[facility] - General Adult General Chief complaint: Nausea/Vomiting/Diarrhea Stated complaint: vomiting Time Seen by Provider: 08/08/23 18:24 Source: patient Mode of arrival: ambulatory Limitations: no limitations History of Present Illness HPI narrative: This is a 23-year-old female who presents to the ED with chief complaint of nausea and vomiting onset x6 days. Reports she was seen here 6 days ago for N/V along with dysuria. Reports that she has had multiple kidney stones in the past and felt that she was having another 1 then. Reports they did imaging and did not find a stone but told her she may have passed UTI. She has been taking her antibiotics as prescribed however she has had multiple episodes of vomiting every day since being discharged. Reports she tried to go to work today but left because she was starting to feel lightheaded. Reports bilateral flank pain but no abdominal pain. Denies fevers, chills, any further urinary problems, problems with bowel movements. Related Data Allergies Allergy/AdvReac Type Severity Reaction Status Date / Time Sulfa (Sulfonamide AdvReac Rash Verified 08/02/23 12:38 Antibiotics) Review of Systems Review of Systems: All systems as dictated in [facility] Past Medical History Medical History Kidney stone Nephrostomy complication Ureteral stent present Surgical History Surgical History H/O nephrostomy Social History Social History Social History: Patient drinks alcohol occasionally, denies tobacco or drug use. Exam Narrative: GENERAL: Well-appearing, well-nourished, and in no acute distress. HEAD: Normocephalic, atraumatic. EYES: Eyes are sunken bilaterally. PERRLA and EOMI. ENT: Nares clear, no rhinorrhea or epistaxis. Mucous membranes moist. Oropharynx without tonsillar hypertrophy exudate or other lesions. NECK: Supple. No adenopathy or masses. CHEST: No respiratory distress. Clear to auscultation. No wheezes rales or rhonchi HEART: Regular rate and rhythm. No murmur heard. Normal peripheral pulses. ABDOMEN: Bilateral flank tenderness present. Soft, otherwise nontender, nondistended, normal active bowel sounds. MSK: Normal range of motion. No edema. SKIN: Warm, dry, no rash. NEURO: Alert and oriented x3. No focal deficits. PSYCH: Normal mood and affect. Course Vital Signs Vital signs: Vital Signs Temperature 98.4 F 08/08/23 16:10 Pulse Rate 99 08/08/23 16:10 Respiratory Rate 18 08/08/23 16:10 Blood Pressure 137/90 08/08/23 16:10 Pulse Oximetry 98 08/08/23 16:10 Oxygen Delivery Room Air 08/08/23 16:10 Temperature 98.4 F 08/08/23 16:10 Pulse Rate 88 08/08/23 21:22 Respiratory Rate 14 08/08/23 21:22 Blood Pressure 96/74 L 08/08/23 21:22 Pulse Oximetry 98 08/08/23 21:22 Oxygen Delivery Room Air 08/08/23 16:10 Medical Decision Making MDM Narrative Medical decision making narrative: This is a 23-year-old female who presents to the ED with chief complaint of nausea and vomiting and her flank pain. Vitals are normal. Afebrile. Exam does reveal bilateral flank tenderness. The rest of the abdomen exam is benign. She is not appear septic. Seen recently for UTI and has been on antibiotics, but unable to take a full course due to vomiting. Lab work today is largely unremarkable. CBC and CMP here benign. UA does show continued evidence of possible UTI. She has had multiple CT scans for frequent stones in the past so we discussed avoiding further radiation today. Renal ultrasound shows normal kidneys. No hydronephrosis Abdomen KUB x-ray shows no evidence of any stone. She feels that her nausea has resolved and she would like to go home. I offered admission for complicated UTI but she declines. Previous urine culture does show good suscep
[2023-08-08] MEDS: ONDANSETRON INJ 4 MG/2 ML VIAL IV PUSH (19:09)
[2023-08-08] MEDS: KETOROLAC 15 MG/ML VIAL (*BKC) IV PUSH (19:09)
[2023-08-08] MEDS: SODIUM CHLORIDE 0.9% IV 1,000 ML 999 ML IV CONT (19:10)
[2023-08-08] MEDS: MORPHINE SULFATE (*CRX) 4 MG/ML INJ IV PUSH (20:06)
== END 2023-08-08 21:23 | disposition home or self-care (01) ==
PROVIDERS: Emergency Medicine; Emergency Provider Physician Assistant
DX: N39.0 Urinary tract infection, site not specified (principal)
CPT/HCPCS: 36415; 74018; 76775; 80053; 81001; 81025; 83690; 85025; 96361; 96365; 96375; 99284; J0696; J1885; J2270; J2405; J7030